=== PATIENT | female | born 1960 | race American Indian/Alaskan Native ===

== ENCOUNTER 2021-10-05 23:17 | Emergency (ER) | payer MEDICARE, MEDICAID ==
[2021-10-05 23:34] VITALS: BP 119/72
--- NOTE | 2021-10-06 07:29 | Emergency Department Report ---
ED General Adult HPI - General Chief complaint: Pain General Stated complaint: LUPUS FLARE Time Seen by Provider: 10/06/21 07:13 Source: patient, EMS Mode of arrival: Stretcher Limitations: Other - History of Present Illness Initial comments: 60-year-old -[place] female presents to the emergency room stating she feels like her lupus is flaring up and she does not want to get locked. Patient reports she does not have a primary care provider. She states that she is on Suboxone, Cymbalta, bupropion and Seroquel. She states that her mental health provider prescribes those and pain management. She states her symptoms started yesterday. She reports that she took ibuprofen along time ago. She denies any fever chills no nausea no vomiting no chest pain or shortness of breath. She states her pain is mostly on her right side and down her right leg. Denies any trauma. She does have a history of lupus, spinal stenosis history of TIA anx iety insomnia and bipolar. Onset/Timin -: days(s) Location: back, lower extremity Radiation: extremity, distal Severity scale (0 -10): 7 Quality: aching, sharp Consistency: intermittent Improves with: none Worsens with: none Associated Symptoms: denies other symptoms Treatments Prior to Arrival: none - Related Data Allergies Allergy/AdvReac Type Severity Reaction Status Date / Time No Known Allergies Allergy Verified 10/05/21 23:33 ED Review of Systems ROS: Stated complaint: LUPUS FLARE Other details as noted in HPI Comment: All other systems reviewed and negative ED Past Medical Hx - Past Medical History Hx CVA: Yes Hx Psychiatric Treatment: Yes (anxiety, insomina, bipolar) Additional medical history: Lupus, spinal stenosis ED Physical Exam - General Limitations: Other General appearance: alert, in no apparent distress - Head Head exam: Present: atraumatic, normocephalic - Eye Eye exam: Present: normal appearance - ENT ENT exam: Present: mucous membranes moist - Neck Neck exam: Present: normal inspection, full ROM - Respiratory Respiratory exam: Absent: respiratory distress, accessory muscle use - Cardiovascular Cardiovascular Exam: Present: regular rate - Extremities Exam Extremities exam: Present: normal inspection, full ROM. Absent: pedal edema - Back Exam Back exam: Present: full ROM - Neurological Exam Neurological exam: Present: alert, oriented X3, normal gait - Psychiatric Psychiatric exam: Present: normal affect, normal mood - Skin Skin exam: Present: warm, dry, intact, normal color. Absent: rash ED Course Vital Signs 10/05/21 23:33 Temperature 97.8 F Pulse Rate 63 Respiratory 16 Rate Blood Pressure 119/72 [Right] O2 Sat by Pulse 100 Oximetry ED Medical Decision Making - Medical Decision Making 60-year-old -[place] female presents to the emergency room stating she feels like her lupus is flaring up and she does not want to get locked. Patient reports she does not have a primary care provider. She states that she is on Suboxone, Cymbalta, bupropion and Seroquel. She states that her mental health provider prescribes those and pain management. She states her symptoms started yesterday. She reports that she took ibuprofen along time ago. She denies any fever chills no nausea no vomiting no chest pain or shortness of breath. She states her pain is mostly on her right side and down her right leg. Denies any trauma. She does have a history of lupus, spinal stenosis history of TIA anxiety insomnia and bipolar. Offered patient ibuprofen she declined states that she will will go home and take her medication. Critical care attestation.: If time is entered above; I have spent that time in minutes in the direct care of this critically ill patient, excluding procedure time. ED Disposition Clinical Impression: Lupus, Spinal stenosis, Generalized pain Disposition: 01 HOME / SELF CARE / HOMELESS Is pt being admited?: No Does the pt Need Aspirin: No Condition: Stable Instructions: Spinal Stenosis, [id number] Additional Instructions: Discussed with patient that she needs to follow-up with her pain management provider. Discussed with patient she can take Tylenol or ibuprofen for pain. I recommend patient to follow-up with a primary care provider I have listed 1 below for her convenience. Referrals: LIYA RAMIRES MD [Primary Care Provider] - 3-5 Days STEVE JALLOH MD [Staff Physician] - 3-5 Days Time of Disposition: 07:30
== END 2021-10-06 07:58 | disposition home or self-care (01) ==
LOC: ED 23:17
DX: M32.9 Systemic lupus erythematosus, unspecified (principal); M48.00 Spinal stenosis, site unspecified; R10.84 Generalized abdominal pain; F31.9 Bipolar disorder, unspecified
CPT/HCPCS: 99283